=== PATIENT | male | born 1985 | race Caucasian/White ===

== ENCOUNTER 2020-05-21 14:31 | Emergency (ER) | payer OTHER, SELFPAY ==
--- NOTE | ~2020-05-21 | XR_ITS ---
XR shoulder LT min 2V 05/21/2020 15:07 INDICATION: Left shoulder pain after fall from ladder PROCEDURE: 4 views left shoulder COMPARISON: No prior studies for comparison. FINDINGS: Fracture, dislocation or subluxation is not identified. There is anatomic alignment of the left shoulder. The soft tissues appear within normal limits. No foreign bodies are identified. IMPRESSION: 1: NO ACUTE BONE OR JOINT ABNORMALITY IDENTIFIED. Reviewed, dictated and finalized at location A. 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
--- NOTE | ~2020-05-21 | XR_ITS ---
[[id number] ] INDICATION: Left chest pain after fall TECHNIQUE: Frontal projection of the upper left ribs, frontal projection of the lower left ribs, obli que projection of all the left ribs, frontal inspiratory chest x-ray for interpretation. FINDINGS: There are no displaced rib fractures identified. There are no soft tissue abnormality see n. The lungs are clear. There are calcified granulomas in the right upper lobe. IMPRESSION: 1:No displaced rib fractures. Reviewed, dictated and finalized at location A. 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
[2020-05-21 14:37] VITALS: BP 163/90; PULSE 94; RESP 20; TEMP 36.8; O2SAT 100
--- NOTE | 2020-05-21 15:03 | ED.CHESTPAIN ---
HPI - Chest Pain General Chief Complaint: Chest Pain Stated Complaint: fall/rib injury Source: patient Mode of arrival: ambulatory Limitations: no limitations History of Present Illness HPI narrative: Patient is a 34-year-old male who presents complaining of left rib and left shoulder pain. Patient reports being on a ladder last night with the floor wet, patient reports the ladder slid 14 feet down the wall and he fell on top. He denies neck pain or back pain. He denies LOC. He reports pain 10/. He reports fall occurred at approximately 0130. He reports going home and taking Aleve with little relief. Patient is asking for assistance removing shirt for xray. MD complaint: other (Left shoulder pain, left rib pain) Related Data Allergies Allergy/AdvReac Type Severity Reaction Status Date / Time No Known Allergies Allergy Verified 05/21/20 14:41 Review of Systems Review of Systems: Narrative: CONSTITUTIONAL: Denies fever, chills, or sweats. EYES: Denies visual changes, redness, or discharge. ENT: Denies rhinorrhea, congestion, sore throat, or otalgia. CARDIOVASCULAR: Denies chest pain, palpitations, or edema. RESPIRATORY: Denies cough or dyspnea. GASTROINTESTINAL: Denies abdominal pain, nausea, vomiting, or diarrhea. GENITOURINARY: Denies dysuria or hematuria. SKIN: Denies rash or itching. MUSCULOSKELETAL: Reports left shoulder and left rib pain NEUROLOGIC: Denies headache, numbness, dizziness, or weakness. PSYCHIATRIC: Denies anxiety or depression. [facility] Past Medical History Medical History (Updated 05/21/20 @ 15:27 by RONY Ivey) No significant past medical history Surgical History Surgical History No significant past surgical history Family History Family History Other No significant family history Social History Social History (Updated 05/21/20 @ 15:11 by RONY Ivey) Smoking status: Never smoker Alcohol intake: current Alcohol use details: Occasional Substance use: never Occupation/Education: occupation Comments At the time of signature, I have reviewed and agree with nursing past medical, surgical, social, and family history unless otherwise noted. Please see nursing chart for further information. There is no relevant family history pertinent to the presenting complaint. Exam Narrative: Exam Narrative: GENERAL: Guarding left ribs and shoulder, appears in pain. HEAD: Normocephalic, atraumatic. EYES: No redness or drainage. Conjunctiva are normal. ENT: Mucous membranes pink and moist. CHEST: No respiratory distress. Clear to auscultation. HEART: Regular rate and rhythm. MUSCULOSKELETAL: Tenderness with palpation to the left shoulder, decreased active range of motion, no obvious deformity. Tenderness with palpation to left ribs. SKIN: Warm, dry, no rash. NEURO: No focal deficits. Alert and oriented x3. Gait steady. PSYCH: Normal affect. No signs of depression or anxiety. Course Vital Signs Vital signs: Vital Signs Temperature 36.8 C 05/21/20 14:37 Pulse Rate 94 05/21/20 14:37 Respiratory Rate 20 05/21/20 14:37 Blood Pressure 163/90 H 05/21/20 14:37 Pulse Oximetry 100 05/21/20 14:37 Temperature 36.8 C 05/21/20 14:37 Pulse Rate 94 05/21/20 14:37 Respiratory Rate 20 05/21/20 14:37 Blood Pressure 163/90 H 05/21/20 14:37 Pulse Oximetry 100 05/21/20 14:37 Reviewed. Patient has been instructed to follow-up with his PCP regarding his blood pressure. MDM - Chest Pain MDM Narrative Medical decision making narrative: Patient has no fracture or dislocation per x-ray. Discussed with patient most likely musculoskeletal pain. Patient to be treated for pain and given incentive spirometer as he does not want to take deep breaths because of pain. Instructions on incentive spirometry given as well. Patient to follow-up with
== END 2020-05-21 16:10 | disposition home or self-care (01) ==
PROVIDERS: Emergency Provider Nurse Practitioner
DX: R07.81 Pleurodynia (principal); M25.512 Pain in left shoulder; W11.XXXA Fall on and from ladder, initial encounter
CPT/HCPCS: 71101; 73030; 99214; G0463

== ENCOUNTER 2021-07-23 20:31 | Emergency (ER) | payer SELFPAY ==
--- NOTE | ~2021-07-23 | CT_ITS ---
EXAMINATION: CT brain wo con DATE: 07/23/2021 21:08 INDICATION: Headache for one to 2 days. He or centimeters is or pulmonary TECHNIQUE: Computed tomography (CT) of the head was performed without intravenous contrast. The mA wa s adjusted according to patient size. Iterative reconstruction technique was employed. Exam dose: 60 5.33 mGy-cm total exam DLP. COMPARISON: None FINDINGS: No intracranial mass lesion or hemorrhage or cerebrovascular accident. No midline shift or mass effect. Normal ndiaye-white matter differentiation. Normal size of the ventricles. No subdural or epidural hematoma. No fracture or bone destruction of the cranial vault. Included paranasal sinuses and mastoid air cell s are unremarkable. IMPRESSION: No significant abnormality Reviewed, dictated and finalized at Location [facility]. Reviewed, dictated and finalized at location A. IMPRESSION: No significant abnormality
[2021-07-23 20:34] VITALS: BP 155/105; PULSE 83; RESP 18; TEMP 36.3; O2SAT 99
--- NOTE | 2021-07-23 20:49 | ED.GENADULT ---
HPI - General Adult General Chief complaint: Headache Stated complaint: Headache for 36 hours Time Seen by Provider: 07/23/21 20:42 Source: patient, family and RN notes reviewed Mode of arrival: ambulatory Limitations: no limitations History of Present Illness HPI narrative: 35-year-old male presenting to the emergency department for evaluation of right-sided posterior headache. Patient states yesterday he was driving to work and due to the cold air he had a hard cough. Patient states after that cough he had right superior neck/ posterior scalp pain. Patient states he has had a posterior headache in that region since that time. Patient is not taking anything for pain control. Patient denies any associated numbness or weakness. Patient states that the headache has blurred his vision somewhat. Patient states that the pain was worse with movement of his neck. Patient was able to go to work today. 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 Denies any previous neck injury. Patient is not on any blood thinners. Related Data Allergies Allergy/AdvReac Type Severity Reaction Status Date / Time No Known Allergies Allergy Verified 07/23/21 20:51 Review of Systems Review of Systems: CONSTITUTIONAL: Denies fever, chills, or sweats. EYES: Denies visual changes, redness, or discharge. ENT: Denies rhinorrhea, congestion, sore throat, or otalgia. CARDIOVASCULAR: Denies chest pain, palpitations, or edema. RESPIRATORY: Denies cough or dyspnea. GASTROINTESTINAL: Denies abdominal pain, nausea, vomiting, or diarrhea. GENITOURINARY: Denies dysuria or hematuria. SKIN: Denies rash or itching. MUSCULOSKELETAL: some right sided neck pain NEUROLOGIC: Right-sided posterior headache, reports some minor vision changes due to the headache. Denies any associated numbness or weakness or nausea or vomiting PMF Past Medical History Medical History (Updated 07/23/21 @ 21:54 by Norman Hastings MD) No significant past medical history Surgical History Surgical History No significant past surgical history Family History Family History Other No significant family history Social History Social History (Updated 05/21/20 @ 15:11 by Elena Osullivan, [facility]) Smoking status: Never smoker Alcohol intake: current Alcohol use details: Occasional Substance use: never Exam Narrative: APPEARANCE: Well appearing, no pain, no distress, well-nourished. HEAD: normocephalic, atraumatic. EYES: PERRLA/EOMI, conjunctivae clear. NOSE: Normal no drainage EARS:TMS clear with good light reflex. THROAT: Pharynx clear, no exudate. NECK: Supple. No adenopathy, no masses. Some reproducible tenderness to posterior scalp. RESPIRATORY: Airway patent, respirations nonlabored. Clear to auscultation bilaterally, no rales, rhonchi, wheezing. CARDIOVASCULAR: Regular rate and rhythm without murmurs rubs or gallops. ABDOMINAL: Soft, nontender, nondistended, normal bowel sounds MUSCULOSKELETAL: Moves all extremities. Strength/ROM intact, No edema, No calf tenderness. NEURO: Alert. Cranial nerves II through XII intact. Good gait. Good coordination. Normal strength and reflexes. No ataxia, no drift. No numbness or weakness. Normal visual echevarria. SKIN: Warm, dry. Normal Color Course Course Emergency Course: Patient does feel improved with treatment in the restaurant. CT scan was negative for acute intracranial abnormality. Low concern for vascular injury due to the negative imaging, normal neuro exam and tenderness to palpation. Suspect muscular strain due to the sneezing. Patient was provided Toradol and Flexeril in the emergency department after the negative scan. Patient was discharged with Flexeril. Patient was encouraged to have close follow-up with his p
[2021-07-23] MEDS: CYCLOBENZAPRINE HCL 10 MG TABLET PO (21:50)
[2021-07-23] MEDS: SODIUM CHLORIDE 0.9% IV 1,000 ML 999 ML IV CONT (21:51)
[2021-07-23] MEDS: KETOROLAC 15 MG/ML VIAL (*BKC) IV PUSH (21:51)
[2021-07-23 22:48] VITALS: BP 121/85; PULSE 60; RESP 16; O2SAT 99
== END 2021-07-23 22:50 | disposition home or self-care (01) ==
PROVIDERS: Emergency Provider Emergency Medicine
DX: R51.9 Headache, unspecified (principal)
CPT/HCPCS: 70450; 96374; 99284; A9270; J1885; J7030

== ENCOUNTER 2021-09-13 20:37 | Emergency (ER) | payer SELFPAY ==
--- NOTE | ~2021-09-13 | CT_ITS ---
EXAMINATION: CT abdomen pelvis w con DATE: 09/13/2021 22:09 INDICATION: abd pain TECHNIQUE: Computed tomography (CT) of the abdomen and pelvis was performed with 100 mL Omnipaque-300 intravenous contrast. Automated exposure control and iterative reconstruction technique were employe d. The dose-length product was 1328.57 mGy-cm. COMPARISON: None FINDINGS: Lower thorax: Unremarkable Liver: Normal. Biliary/Gallbladder: Gallbladder is normal. No bile duct dilation. Spleen: Normal. Pancreas: No mass or duct dilation. Adrenals:No mass. Kidneys: No mass, stone, or hydronephrosis. GI tract: No small or large bowel dilation. Normal appendix. Mesentery/Peritoneum: No ascites, mass, or free air. Retroperitoneum: No mass.. Pelvis: Pelvic organs are within normal limits. Soft Tissues: Soft tissues and body wall unremarkable. Bones: No acute osseous finding. IMPRESSION: No acute abdominopelvic process. Reviewed, dictated and finalized at location K.
[2021-09-13 20:53] VITALS: BP 165/107; PULSE 78; RESP 18; TEMP 36.8; O2SAT 100
[2021-09-13 21:05] LABS: Basophils Absolute Auto 0.1 K/mm3 (0.0-0.1); Basophils Percent Auto 1.1 % (0.2-1.2); Eosinophils Absolute Auto 0.2 K/mm3 (0-0.3); Eosinophils Percent Auto 2.9 % (0-4.4); Hematocrit 47.1 % (42.0-52.0); Hemoglobin 16.8 g/dL (14.0-18.0); Immature Granulocyte Absolute 0.04 K/mm3 (0.00-0.031); Immature Granulocyte Percent A 0.5 % (0-0.5); Lymphocytes Absolute Auto 2.24 K/mm3 (0.9-3.2); Lymphocytes Percent Auto 28.5 % (18.3-44.2); Mean Corpuscular HGB Conc 35.7 g/dl (32-36); Mean Corpuscular Hemoglobin 33.6 pg (26-34); Mean Corpuscular Volume 94.2 fl (80-100); Mean Platelet Volume 9.7 fl (7.4-10.4); Monocytes Absolute Auto 0.8 K/mm3 (0.1-0.6); Monocytes Percent Auto 9.7 % (2.6-8.5); Neutrophils Absolute Auto 4.5 K/mm3 (1.3-6.7); Neutrophils Percent Auto 57.3 % (45.5-73.1); Platelet Count Result 163 k/mm3 (150-375); White Blood Count 7.9 K/mm3 (4.5-10.0)
[2021-09-13 21:14] LABS: Alanine Aminotransferase 371 U/L (6-50); Albumin Level 4.9 g/dL (3.5-5.1); Alkaline Phosphatase 76 U/L (38-126); Anion Gap 6 mmol/L (8-16); Aspartate Amino Transferase 222 U/L (17-59); Bilirubin,Total 0.5 mg/dL (0.2-1.3); Blood Urea Nitrogen 14 mg/dL (9-20); Calcium 9.2 mg/dL (8.4-10.2); Carbon Dioxide 26 mmol/L (22-30); Chloride 104 mmol/L (98-107); Estimated CRCL calculation 144 ml/min; Estimated Glomerular Filt Rate > 60; Glucose 89 mg/dL (65-110); Potassium 4.2 mmol/L (3.4-5.0); Sodium 136 mmol/L (137-145)
[2021-09-13 21:16] LABS: Prothrombin Time 12.8 Seconds (11.1-14.7)
[2021-09-13 21:18] LABS: Partial Thromboplastin Time 28.7 SECONDS (22.3-36.8)
--- NOTE | 2021-09-13 21:41 | PC.NURSE ---
[facility] ERP DR PRETTY TO ENTER UA ORDER.
--- NOTE | 2021-09-13 21:44 | ED.GIBLEED ---
HPI - GI Bleed General Chief complaint: GI Bleed Stated complaint: black stools 2 days Time Seen by Provider: 09/13/21 21:30 Source: RN notes reviewed History of Present Illness HPI Narrative: Patient presents emergency room from home for abdominal pain and black stools. Patient states symptoms began 2 days ago states he began to have pain in his bilateral lower abdomen as well as 2 episodes of black stool 2 days ago and 1 episode yesterday he states that his stool was loose in nature he denies any fevers or chills chest pain shortness of breath vomiting. He states he has been feeling more tired over the past several days. Patient states he does drink approximately 6-7 beers 3-4 times a week Related Data Allergies Allergy/AdvReac Type Severity Reaction Status Date / Time No Known Allergies Allergy Verified 09/13/21 20:57 Review of Systems Review of Systems: Gen.: Denies fevers or chills ENT: Denies congestion Respiratory: Denies shortness of breath or cough CV: Denies chest pain or palpitations GI: HPI denies burning, urgency, frequency or hematuria Musculoskeletal: Denies back pain or muscle pain Neuro: Denies numbness, tingling, weakness or focal weakness Skin: Denies rash Except as documented, all other systems reviewed and negative [facility] Past Medical History Medical History No significant past medical history Surgical History Surgical History No significant past surgical history Family History Family History Other No significant family history Social History Social History Smoking status: Never smoker Alcohol intake: current Alcohol use details: Occasional Substance use: never Exam Narrative: APPEARANCE: No acute distress, nontoxic, resting in bed HEENT: Normocephalic, atraumatic, OMM RESPIRATORY: No respiratory distress, clear to auscultation bilaterally with no rhonchi wheezing or rales CARDIOVASCULAR: RRR s murmur ABDOMINAL: Soft nondistended tender palpation left lower quadrant right lower quadrant no tenderness right upper quadrant left upper quadrant no rebound or guarding Rectal: No hemorrhoids or fissures small amount of dark brown stool in rectal vault that is Hemoccult negative MUSCULOSKELETAl: Moves all extremities. No clubbing, cyanosis or edema. NEURO: Awake and alert. Following commands, speech normal, no focal deficits SKIN:: Warm, dry. Normal Color PSYCHIATRIC: Normal affect/mood Course Course Emergency Course: Discussed with patient results of workup and diagnosis. Discussed need for follow-up with primary care, proper use of medication, and reasons to return to the emergency department. Patient understands and agrees to current treatment plan Vital Signs Vital signs: Vital Signs Temperature 98.3 F 09/13/21 20:53 Pulse Rate 78 09/13/21 20:53 Respiratory Rate 18 09/13/21 20:53 Blood Pressure 165/107 H 09/13/21 20:53 Pulse Oximetry 100 09/13/21 20:53 Temperature 98.3 F 09/13/21 20:53 Pulse Rate 65 09/13/21 21:56 Respiratory Rate 18 09/13/21 20:53 Blood Pressure 155/95 H 09/13/21 21:56 Pulse Oximetry 100 09/13/21 20:53 MDM - GI Bleed MDM Narrative Medical decision making narrative: Patient's abdomen is soft without significant pain or signs of surgical abdomen on serial exams. Lab and x-ray evaluations are reviewed and patient is felt to be a reasonable candidate for outpatient management. Patient was instructed as to limitations of x-ray and laboratory evaluation and encouraged to return to ED or primary physician for repeat exam in 12 hours if continued or worsening pain. A rectal exam was performed in the ER with heme-negative stool hemoglobin is stable in ED and CT scan shows no acute signs of infection no acut
[2021-09-13 21:53] VITALS: BP 143/93; PULSE 56
[2021-09-13 21:54] VITALS: BP 138/105; PULSE 68
--- NOTE | 2021-09-13 21:54 | PC.NURSE ---
called lab and spoke to Yazmin to add on a lipase at 2155.
[2021-09-13 21:56] VITALS: BP 155/95; PULSE 65
[2021-09-13 22:06] LABS: Lipase 94 U/L (23-300)
[2021-09-13] MEDS: SODIUM CHLORIDE 0.9% IV 1,000 ML 999 ML IV CONT (22:08)
[2021-09-13 22:12] LABS: Appearance Urine Clear (Clear); Bilirubin Urine Negative (Negative); Blood Urine Negative (Negative); Color Urine Yellow (Yellow); Glucose Urine UA Negative (Negative); Ketones Urine Negative (Negative); Leukocyte Esterase Ur Negative LEU/UL (Negative); Nitrate Urine Negative (Negative); Protein Urine Negative (Negative); Specific Grav Ur >= 1.030 (1.001-1.035); pH Urine 6.5 (5.0-9.0)
[2021-09-13 22:17] LABS: Add Urine Microscopic? YES; Mucus Urine Rare /lpf; RBC Urine 0-2 /hpf (0-2); Squamous Epithelial Cell Urine Rare /hpf (Few); WBC Urine 0-3 /hpf
[2021-09-13 22:47] VITALS: BP 161/98; PULSE 73; RESP 18; O2SAT 99
== END 2021-09-13 22:48 | disposition home or self-care (01) ==
PROVIDERS: Emergency Provider Emergency Medicine
DX: R10.32 Left lower quadrant pain (principal); R10.31 Right lower quadrant pain; R74.01 Elevation of levels of liver transaminase levels
CPT/HCPCS: 36415; 74177; 80053; 81001; 83690; 85025; 85610; 85730; 86850; 86880; 86900; 86901; 86902; 96360; 99284; J7030; Q9967

== ENCOUNTER 2022-01-10 18:29 | Emergency (ER) | payer BC, SELFPAY ==
--- NOTE | ~2022-01-10 | XR_ITS ---
XR chest 2V DATE: 01/10/2022 20:18 INDICATION: Weakness since bit by an insect 2 days ago TECHNIQUE: PA and lateral views COMPARISON: None FINDINGS: Normal heart size. No hilar or mediastinal enlargement. No pulmonary infiltrate or consolid ation, pleural effusion or pulmonary vascular congestion or pneumothorax. Right upper lobe calcified pulmonary granuloma. IMPRESSION: No active cardiopulmonary disease Reviewed, dictated and finalized at location A.
[2022-01-10 18:33] VITALS: BP 165/93; PULSE 83; RESP 16; TEMP 36.3; O2SAT 100
--- NOTE | 2022-01-10 18:40 | ECG_ITS ---
Measurements Intervals [place] Rate: 55 P: 51 WI: 156 QRS: 0 QRSD: 97 T: -6 QT: 416 QTc: 401 Interpretive Statements SINUS BRADYCARDIA DELAYED PRECORDIAL R/S TRANSITION BORDERLINE T WAVE ABNORMALITY- INFERIOR LEADS BORDERLINE ECG NO PREVIOUS ECG AVAILABLE FOR COMPARISON Electronically Signed On 01-11-2022 8:07:09 CDT by Steven Hall D.O.
[2022-01-10 19:28] LABS: Basophils Absolute Auto 0.1 K/mm3 (0.0-0.1); Basophils Percent Auto 0.8 % (0.2-1.2); Eosinophils Absolute Auto 0.2 K/mm3 (0-0.3); Hematocrit 46.1 % (42.0-52.0); Immature Granulocyte Absolute 0.04 K/mm3 (0.00-0.031); Immature Granulocyte Percent A 0.5 % (0-0.5); Lymphocytes Percent Auto 24.5 % (18.3-44.2); Mean Corpuscular HGB Conc 34.7 g/dl (32-36); Mean Corpuscular Hemoglobin 32.8 pg (26-34); Mean Corpuscular Volume 94.5 fl (80-100); Mean Platelet Volume 9.6 fl (7.4-10.4); Monocytes Absolute Auto 0.7 K/mm3 (0.1-0.6); Monocytes Percent Auto 8.3 % (2.6-8.5); Neutrophils Absolute Auto 5.5 K/mm3 (1.3-6.7); Neutrophils Percent Auto 63.9 % (45.5-73.1); Platelet Count Result 194 k/mm3 (150-375); Red Blood Count 4.88 M/mm3 (4.6-6.20); Red Cell Distribution Width 12.4 % (11.5-14.5); White Blood Count 8.6 K/mm3 (4.5-10.0)
[2022-01-10 19:52] LABS: Alanine Aminotransferase 469 U/L (6-50); Albumin Level 4.8 g/dL (3.5-5.1); Alkaline Phosphatase 83 U/L (38-126); Anion Gap 16 mmol/L (8-16); Aspartate Amino Transferase 286 U/L (17-59); Bilirubin,Total 0.9 mg/dL (0.2-1.3); Blood Urea Nitrogen 14 mg/dL (9-20); Calcium 9.1 mg/dL (8.4-10.2); Carbon Dioxide 21 mmol/L (22-30); Chloride 102 mmol/L (98-107); Estimated Glomerular Filt Rate > 60; Glucose 104 mg/dL (65-110); Potassium 3.8 mmol/L (3.4-5.0); Sodium 139 mmol/L (137-145)
[2022-01-10] MEDS: CEPHALEXIN 500 MG CAPSULE PO (22:54)
[2022-01-10] MEDS: ONDANSETRON HCL ODT 4 MG TABLET PO (22:54)
[2022-01-10] MEDS: MECLIZINE HCL 25 MG TABLET PO (22:54)
[2022-01-10 23:01] LABS: Appearance Urine Clear (Clear); Bilirubin Urine 1+ (Negative); Blood Urine Negative (Negative); Color Urine Yellow (Yellow); Glucose Urine UA Negative (Negative); Ketones Urine 1+ mg/dL (Negative); Leukocyte Esterase Ur Negative LEU/UL (Negative); Nitrate Urine Negative (Negative); Protein Urine Negative (Negative); Specific Grav Ur >= 1.030 (1.001-1.035); Urobilinogen Urine 0.2 mg/dL (<2.0); pH Urine 5.5 (5.0-9.0)
[2022-01-10 23:04] LABS: Bacteria Urine Trace /hpf; Mucus Urine Rare /lpf; RBC Urine 0-2 /hpf (0-2); WBC Urine 0-3 /hpf
[2022-01-10 23:10] LABS: Add Urine Microscopic? YES
--- NOTE | 2022-01-10 23:23 | ED.WOUNDLAC ---
HPI - Wound/Laceration General Chief Complaint: Wound/Laceration Stated Complaint: bite by something Time Seen by Provider: 01/10/22 22:34 History of Present Illness HPI narrative: This is a 36-year-old male with no significant past medical history, who presents to the emergency department complaining of vertigo and left finger paresthesias. He states earlier today, he and his changed sheets in the bed, when he slept he felt 3 bites to the left arm, that has since developed mild swelling associated with vertigo. Patient states he has not eaten any thing today but denies vomiting, shortness of breath, chest pain, weakness or numbness. Related Data Allergies Allergy/AdvReac Type Severity Reaction Status Date / Time No Known Allergies Allergy Verified 01/10/22 22:34 Review of Systems Review of Systems: CONSTITUTIONAL: Denies fever, chills, or sweats. EYES: Denies visual changes, redness, or discharge. ENT: Denies rhinorrhea, congestion, sore throat, or otalgia. CARDIOVASCULAR: Lightheadedness denies chest pain, palpitations, or edema. RESPIRATORY: Denies cough or dyspnea. GASTROINTESTINAL: Denies abdominal pain, nausea, vomiting, or diarrhea. GENITOURINARY: Denies dysuria or hematuria. SKIN: Denies rash or itching. MUSCULOSKELETAL: Denies back pain, joint pain, or myalgia. NEUROLOGIC: Vertigo denies headache, numbness, or weakness. PSYCHIATRIC: Denies anxiety or depression. PMFSH Past Medical History Medical History (Updated 01/10/22 @ 23:27 by Landon Coughlin MD) Bloating Elevated liver function tests Hx of intravenous drug use in remission No significant past medical history Surgical History Surgical History No significant past surgical history Family History Family History (Updated 10/25/21 @ 13:05 by Lisbet Dyer MA) Father Cancer Mother Cancer Other No significant family history Social History Social History Smoking status: Never smoker Alcohol intake: current Alcohol use details: Occasional Substance use: never Exam Narrative: GENERAL: Well-appearing, well-nourished, and in no acute distress. HEAD: Normocephalic, atraumatic. EYES: PERRLA and EOMI. ENT: Nares clear, no rhinorrhea or epistaxis. Mucous membranes moist. Oropharynx without tonsillar hypertrophy exudate or other lesions. NECK: Supple. No adenopathy or masses. No carotid bruits or JVD CHEST: Clear to auscultation. No respiratory distress. No wheezes rales or rhonchi HEART: Regular rate and rhythm. No murmur heard. Normal peripheral pulses. ABDOMEN: Soft, nontender, nondistended, normal active bowel sounds. EXTREMITIES: Normal range of motion. No edema. SKIN: Warm, dry; 3 mildly tender, approximately 0.5 to 1 cm areas of induration with erythema noted over the posterior lateral aspect of the left arm. There is no noted fluctuant mass NEURO: No focal deficits. Alert and oriented x3. Strength 5 5 in all extremities, sensation intact, no noted truncal ataxia or limb ataxia, no nystagmus PSYCH: Normal mood and affect. Course Course Emergency Course: 00:26 - Patient states he feels improved after meclizine, Zofran and tolerating p.o. Chemistries demonstrate ALT AST elevation but otherwise unremarkable. CBC unremarkable. UA unremarkable. Chest x-ray unremarkable. Discussed findings and recommendations with the patient as well is return emergent precautions including signs/symptoms of sepsis and intractable vomiting. The patient voiced understanding and is comfortable with the plan. All questions answered to his satisfaction. Vital Signs Vital signs: Vital Signs Temperature 97.3 F L 01/10/22 18:33 Pulse Rate 83 01/10/22 18:33 Respiratory Rate 16 01/10/22 18:33 Blood Pressure 165/93 H 01/10/22 18:33 Pulse Oximetry 100 01/10/22 18:33 Temperature 97.3 F L 01/10/22 18:33 Pulse
[2022-01-11 00:39] VITALS: BP 139/84; PULSE 60; RESP 16; O2SAT 99
== END 2022-01-11 00:38 | disposition home or self-care (01) ==
PROVIDERS: Emergency Medicine; Emergency Provider Preventive Medicine Aerospace Medicine
DX: R42 Dizziness and giddiness (principal); L03.114 Cellulitis of left upper limb; R11.0 Nausea; R00.1 Bradycardia, unspecified; R94.31 Abnormal electrocardiogram [ECG] [EKG]
CPT/HCPCS: 36415; 71046; 80053; 81001; 85025; 93005; 99283; A9270

== ENCOUNTER 2022-05-17 14:56 | Outpatient (CLI) | payer BC, SELFPAY ==
[2022-05-17 15:27] LABS: Hematocrit 44.8 % (42.0-52.0); Hemoglobin 15.9 g/dL (14.0-18.0); Mean Corpuscular HGB Conc 35.5 g/dl (32-36); Mean Corpuscular Hemoglobin 33.7 pg (26-34); Mean Corpuscular Volume 94.9 fl (80-100); Mean Platelet Volume 9.8 fl (7.4-10.4); Platelet Count Result 159 k/mm3 (150-375); Red Blood Count 4.72 M/mm3 (4.6-6.20); White Blood Count 7.6 K/mm3 (4.5-10.0)
[2022-05-17 15:37] LABS: Alanine Aminotransferase 279 U/L (6-50); Albumin Level 4.8 g/dL (3.5-5.1); Alkaline Phosphatase 87 U/L (38-126); Aspartate Amino Transferase 187 U/L (17-59); Bilirubin,Total 0.9 mg/dL (0.2-1.3)
[2022-05-17 15:44] LABS: INR 1.1; Prothrombin Time 13.6 Seconds (11.1-14.7)
[2022-05-17 18:10] LABS: Hepatitis B Surface Anti Res Negative
[2022-05-19 20:02] LABS: Hepatitis C Viral RNA PCR 394000 IU/mL
[2022-05-20 19:32] LABS: Hepatitis A Antibody Total Nonreactive (Nonreactive)
[2022-05-20 21:30] LABS: Actin Antibody (IgG) <20 U (<20)
[2022-05-21 20:36] LABS: LKM 1 Antibody <=20.0 U (<=20.0)
[2022-05-22 06:52] LABS: HCV Genotype, LiPA 3
[2022-05-22 13:38] LABS: Alpha-1-Antitrypsin, QN 161 mg/dL (83-199)
[2022-05-22 20:57] LABS: Mitochondrial (M2) Ab (IgG) <=20.0 U (<=20.0)
[2022-05-23 15:42] LABS: ALT 229 U/L (9-46); Alpha-2-Macroglobulin 187 mg/dL (106-279); Apolipoprotein A1 173 mg/dL (94-176); Fibrosis Score 0.29; Fibrosis Stage F1; GGT 463 U/L (3-90); Haptoglobin 127 mg/dL (43-212); Necroinflammat Act Grade A3; Total Bilirubin 0.5 mg/dL (0.2-1.2)
[2022-05-23 16:36] LABS: Alpha Fetoprotein Tumor Marker 8.6 ng/mL (<6.1)
== END 2022-05-17 14:57 | disposition home or self-care (01) ==
LOC: ANHLAB 14:57
PROVIDERS: PCP Family Medicine; Visit Provider Nurse Practitioner
DX: K74.60 Unspecified cirrhosis of liver (principal); R76.8 Other specified abnormal immunological findings in serum; R79.89 Other specified abnormal findings of blood chemistry
CPT/HCPCS: 36415; 80076; 81596; 82103; 82105; 83516; 83520; 85027; 85610; 86038; 86376; 86706; 86708; 87522

== ENCOUNTER 2022-05-28 08:41 | Outpatient (CLI) | payer BC, SELFPAY ==
--- NOTE | ~2022-05-28 | US_ITS ---
EXAMINATION: US abdomen complete DATE: 05/28/2022 09:25 INDICATION: Other specified abnormal immunologic findings. TECHNIQUE: Multiple grayscale and Doppler ultrasound images of the abdomen were obtained. COMPARISON: CT abdomen and pelvis dated 09/13/2021 FINDINGS: The pancreatic head and body are normal in appearance. The pancreatic tail is not visualized. Abdomi nal aorta measures 2.4 cm in diameter proximally, 2.6 cm in the mid aorta and 1.7 cm in the distal ao rta with normal triphasic arterial waveforms on color Doppler. Visualized proximal inferior vena cava is normal. Liver has normal contour, with a smooth surface. There is increased parenchymal echogenic ity and coarsened echotexture consistent with diffuse hepatic steatosis. No liver lesion identified. No intrahepatic biliary duct dilation suspected. Portal venous flow was seen in the hepatopetal, nor mal direction and has normal Doppler waveform. The gallbladder is normal in appearance. There is no cholelithiasis. Sonographic Isaacs sign was reported as negative by the medical practitioners. The common bile duct measures 3 mm, which is normal. There is normal renal contour and echogenicity bilaterally. The right kidney measures 12.6 x 5.0 x 4.3 cm and the left 12.2 x 5.8 x 4.0 cm. There are no focal renal lesions identified. There is no hydronephrosis. Normal spleen measuring 12.1 x 12.3 x 3.4 cm . IMPRESSION: 1. Diffuse hepatic steatosis. Otherwise normal abdominal ultrasound. Reviewed, dictated and finalized at location B. [employer]
== END 2022-05-28 08:42 | disposition home or self-care (01) ==
LOC: ANHIMG 08:42
PROVIDERS: PCP Family Medicine; Visit Provider Nurse Practitioner
DX: K76.0 Fatty (change of) liver, not elsewhere classified (principal); R10.13 Epigastric pain; R76.8 Other specified abnormal immunological findings in serum; R79.89 Other specified abnormal findings of blood chemistry
CPT/HCPCS: 76700

== ENCOUNTER 2022-06-22 00:30 | Day surgery (SDC) | payer BC, SELFPAY ==
[2022-06-06 14:20] VITALS: BMI 36.8
[2022-06-22 06:24] VITALS: BP 159/102; PULSE 68; RESP 18; TEMP 36.2; O2SAT 100
[2022-06-22] MEDS: LACTATED RINGERS 1,000 ML 150 ML IV CONT (06:36)
--- NOTE | 2022-06-22 06:40 | WPDANESEPPF ---
Anes - Initial Pre Proc Eval Procedure: Operation Date: 06/22/22 07:30 Proposed Procedures p Esophagogastroduodenoscopy & Colonoscopy - Jan Godinez MD Date/Time: 06/22/22 06:40 Surgeon: Jan Godinez MD Pre Op Diagnosis: GERD, hematochezia Patient Data Age: 36 Gender: M Height: 1.8 m Weight: 119.4 kg Last Vital Signs Temp 36.2 C L 06/22/22 06:24 Pulse 68 06/22/22 06:24 Resp 18 06/22/22 06:24 BP 159/102 H 06/22/22 06:24 Pulse Ox 100 06/22/22 06:24 O2 Del Method Room Air 06/22/22 06:24 Allergies Allergy/AdvReac Type Severity Reaction Status Date / Time gabapentin Allergy Intermediate Muscle Verified 06/22/22 06:23 Spasms Home Medications Medication Instructions Recorded Confirmed Type multivitamin 1 tablet PO DAILY 05/03/22 06/06/22 History escitalopram oxalate 5 mg tablet 5 mg PO DAILY #30 tabs 05/17/22 06/06/22 Rx (Lexapro) omeprazole 40 mg capsule,delayed 40 mg PO DAILY 1 month #30 caps 05/21/22 06/06/22 Rx release cetirizine 10 mg tablet (Zyrtec) 10 mg PO DAILY 06/06/22 06/06/22 History lorazepam 0.5 mg tablet (Ativan) 0.5 mg PO BID PRN anxiety #30 tabs 06/12/22 06/22/22 Rx Patient hx anesthesia problems: none Family hx anesthesia problems: none Results Review: All pre-operative results and documents have been reviewed as part of the pre-operative evaluation. [facility] Past Medical History Medical History Alcohol abuse Bloating Elevated liver function tests Epigastric pain Hematochezia Hepatitis C antibody positive in blood Hx of intravenous drug use in remission Nausea No significant past medical history Surgical History Surgical History No significant past surgical history Family History Family History Father Cancer Skin cancer Anxiety Mother Cancer Cancer of kidney Depression Anxiety Other No significant family history Social History Social History Smoking packs per day: 0.5 Smoking cigarettes per day: 10.0 Years smoked: 7 Smoking pack-years: 3.50 Smoking status: Former smoker Tobacco type: cigarettes Smoking end date: 05/06/14 Alcohol intake: current Alcohol use details: a few beers a week - formerly was drinking heavily Substance use: never Substance use type: does not use Last use: 2012 Lack of Transportation: No Lack of Food: Never True Current Housing: I Have Housing Concerned About Future Housing: No Difficulty Paying Gas/Electric Bills: No Difficulty Paying for Meds: No Currently Unemployed: No Education: Associate Degree Difficulty w/ Childcare or Family Care: No Living arrangements: with family Occupation/Education: occupation Spiritual care concerns: No Anes - Eval Final PreProcedure Day of Procedure 06/22/22 06:40 Patient weight: obese Heart: regular rate and rhythm Lungs: clear to auscultation Airway: Mallampati scale class II Neurological: alert and oriented Last oral intake: >/= 8 hours ASA classification: III Emergent: no Anesthetic plan: proceed Anesthesia type and monitoring: general GIVS and standard monitoring Results Review: All pre-operative results and documents have been reviewed as part of the pre-operative evaluation. Informed Consent: The patient's anesthetic plan and its attendant risks and benefits were discussed with the patient/family/POA. Questions were solicited and answers provided to the satisfaction of the patient/family/POA.
--- NOTE | 2022-06-22 07:35 | PM.HPGS ---
History of Present Illness History of Present Illness Consent: Risks, benefits, and alternatives have been discussed and questions answered. Patient agrees to proceed with procedure. Chief complaint: GERD, hematochezia Narrative: Kyle Santiago is a 36 year old male with hcv treatment naive, he has abdominal pain, loose stools and few occasions noted blood in stools. Review of Systems Constitutional: Constitutional: Denies headache(s) and Denies weakness Eyes: Eyes: Denies blurry vision ENT: Reports Normal hearing present, Denies headache(s) and Denies neck pain Cardiovascular: Cardiovascular: Denies chest pain and Denies dyspnea Respiratory: Respiratory: Denies dyspnea Gastrointestinal: Gastrointestinal: Reports no additional gastrointestinal complaints Genitourinary: Genitourinary: Denies dysuria Musculoskeletal: Musculoskeletal: Denies neck pain Integumentary/Breasts: Skin/Breast: Denies dry skin Neurologic: Reports Normal hearing present, Denies headache(s) and Denies weakness Psychiatric: Psychiatric: Denies anxiety Endocrine: Endocrine: Denies change in body appearance Hematologic/Lymphatic: Hematologic/Lymphatic: Denies easy bleeding Allergic/Immunologic: Allergic/Immunologic: Denies urticaria PMFSH Past Medical History Medical History Alcohol abuse Bloating Elevated liver function tests Epigastric pain Hematochezia Hepatitis C antibody positive in blood Hx of intravenous drug use in remission Nausea No significant past medical history Surgical History Surgical History No significant past surgical history Family History Family History Father Cancer Skin cancer Anxiety Mother Cancer Cancer of kidney Depression Anxiety Other No significant family history Social History Social History Smoking packs per day: 0.5 Smoking cigarettes per day: 10.0 Years smoked: 7 Smoking pack-years: 3.50 Smoking status: Former smoker Tobacco type: cigarettes Smoking end date: 05/06/14 Alcohol intake: current Alcohol use details: a few beers a week - formerly was drinking heavily Substance use: never Substance use type: does not use Last use: 2012 Lack of Transportation: No Lack of Food: Never True Current Housing: I Have Housing Concerned About Future Housing: No Difficulty Paying Gas/Electric Bills: No Difficulty Paying for Meds: No Currently Unemployed: No Education: Associate Degree Difficulty w/ Childcare or Family Care: No Living arrangements: with family Occupation/Education: occupation Spiritual care concerns: No Meds Home Medications and Allergies Home Medications Medication Instructions Recorded Confirmed Type multivitamin 1 tablet PO DAILY 05/03/22 06/06/22 History escitalopram oxalate 5 mg tablet 5 mg PO DAILY #30 tabs 05/17/22 06/06/22 Rx (Lexapro) omeprazole 40 mg capsule,delayed 40 mg PO DAILY 1 month #30 caps 05/21/22 06/06/22 Rx release cetirizine 10 mg tablet (Zyrtec) 10 mg PO DAILY 06/06/22 06/06/22 History lorazepam 0.5 mg tablet (Ativan) 0.5 mg PO BID PRN anxiety #30 tabs 06/12/22 06/22/22 Rx Allergies Allergy/AdvReac Type Severity Reaction Status Date / Time gabapentin Allergy Intermediate Muscle Verified 06/22/22 06:23 Spasms Vital Signs Vital Signs - 24 hr 06/22/22 06:24 Temperature 97.1 F L Pulse Rate 68 Respiratory Rate 18 Blood Pressure 159/102 H Pulse Oximetry 100 Oxygen Delivery Room Air Exam Const: General: comfortable and no acute distress HENMT: Face/Nose/Sinus: Normal nares present Eyes: General: appearance normal, both eyes and all related structures Neck: Neck: no JVD Resp: Auscultation: clear to auscultation bilaterally Cardio: Rate: r
--- NOTE | 2022-06-22 07:51 | SUR.OPER ---
egd ended at 0751 and colonoscopy started at 0745
[2022-06-22 08:02] VITALS: BP 104/60; PULSE 68; RESP 17; O2SAT 99
[2022-06-22 08:12] VITALS: BP 127/80; PULSE 65; RESP 24; O2SAT 98
[2022-06-22 08:22] VITALS: BP 123/87; PULSE 59; RESP 18; O2SAT 97
== END 2022-06-22 08:40 | disposition home or self-care (01) ==
PROVIDERS: PCP Family Medicine; Visit Provider Internal Medicine Gastroenterology
PROC: 0DJ08ZZ Inspection of Upper Intestinal Tract, Via Natural or Artificial Opening Endoscopic (ICD-10-PCS; CPT 43235; principal; 2022-06-22 07:30)
DX: R11.0 Nausea (principal); R10.13 Epigastric pain; D12.4 Benign neoplasm of descending colon; K64.8 Other hemorrhoids; K92.1 Melena; R19.7 Diarrhea, unspecified; R76.8 Other specified abnormal immunological findings in serum; Z87.891 Personal history of nicotine dependence; E66.9 Obesity, unspecified; Z68.36 Body mass index [BMI] 36.0-36.9, adult
CPT/HCPCS: 43239; 45385; 45380; 88305; J2704; J7120

== ENCOUNTER 2023-02-07 05:23 | Emergency (ER) | payer OTHER, SELFPAY ==
[2023-02-07] VITALS (17 sets, daily range): BP systolic 111–153; BP diastolic 71–91; PULSE 59–71; RESP 14–19; TEMP 36.6–36.8; O2SAT 96–100
--- NOTE | ~2023-02-07 | CT_ITS ---
CT of the Abdomen and Pelvis: Indication: Abdominal pain Technique: 2.5 mm axial scans were obtained through the abdomen and pelvis following intravenous adm inistration of 100 cc of Omnipaque 350. Dose reduction technique was used on this scan by utilizing a utomated exposure control and iterative reconstruction technique. The dose-length product (DLP) was 1 101.86 mGy-cm. COMPARISON: 09/13/2021 Findings: Scans through the lung bases are unremarkable. The liver, spleen, pancreas, gallbladder, adrenals and kidneys are within normal limits. No evidence of aortic aneurysm. No lymphadenopathy. No bowel obstruction or bowel wall thickening. There is no evidence to suggest acute appendicitis. Images through the pelvis were performed. Urinary bladder unremarkable. Prostate gland and seminal ve sicles are unremarkable. No ascites. Impression: No significant abnormalities seen. Reviewed, dictated and finalized at [facility]. Impression: No significant abnormalities seen.
[2023-02-07 06:33] LABS: Basophils Absolute Auto 0.1 K/mm3 (0.0-0.1); Basophils Percent Auto 1.8 % (0.2-1.2); Eosinophils Percent Auto 17.4 % (0-4.4); Hematocrit 41.7 % (42.0-52.0); Hemoglobin 13.8 g/dL (14.0-18.0); Immature Granulocyte Absolute 0.01 K/mm3 (0.00-0.031); Immature Granulocyte Percent A 0.2 % (0-0.5); Lymphocytes Absolute Auto 1.69 K/mm3 (0.9-3.2); Mean Corpuscular HGB Conc 33.1 g/dl (32-36); Mean Corpuscular Hemoglobin 33.3 pg (26-34); Mean Corpuscular Volume 100.7 fl (80-100); Mean Platelet Volume 10.3 fl (7.4-10.4); Monocytes Absolute Auto 0.5 K/mm3 (0.1-0.6); Monocytes Percent Auto 9.1 % (2.6-8.5); Neutrophils Absolute Auto 2.3 K/mm3 (1.3-6.7); Neutrophils Percent Auto 41.5 % (45.5-73.1); Platelet Count Result 100 k/mm3 (150-375); Red Blood Count 4.14 M/mm3 (4.6-6.20); Red Cell Distribution Width 13.1 % (11.5-14.5); White Blood Count 5.6 K/mm3 (4.5-10.0)
[2023-02-07 06:44] LABS: Alanine Aminotransferase 261 U/L (6-50); Albumin Level 4.1 g/dL (3.5-5.1); Alkaline Phosphatase 132 U/L (38-126); Anion Gap 9 mmol/L (8-16); Aspartate Amino Transferase 459 U/L (17-59); Bilirubin,Total 1.2 mg/dL (0.2-1.3); Blood Urea Nitrogen 13 mg/dL (9-20); Calcium 8.8 mg/dL (8.4-10.2); Carbon Dioxide 24 mmol/L (22-30); Chloride 104 mmol/L (98-107); Estimated CRCL calculation 163 ml/min; Estimated Glomerular Filt Rate > 60; Glucose 115 mg/dL (65-110); Potassium 3.9 mmol/L (3.4-5.0); Sodium 137 mmol/L (137-145)
[2023-02-07 06:50] LABS: INR 1.1; Prothrombin Time 14.4 Seconds (11.1-14.7)
[2023-02-07 06:51] LABS: Partial Thromboplastin Time 30.7 SECONDS (22.3-36.8)
[2023-02-07] MEDS: PANTOPRAZOLE SODIUM IV 40 MG VIAL 80 MG IV PUSH (08:18)
[2023-02-07] MEDS: ONDANSETRON INJ 4 MG/2 ML VIAL IV PUSH (08:18)
[2023-02-07] MEDS: SODIUM CHLORIDE 0.9% IV 1,000 ML 999 ML IV CONT (08:18)
[2023-02-07] MEDS: MORPHINE SULFATE (*CRX) 4 MG/ML INJ IV PUSH (08:19)
[2023-02-07 09:11] LABS: Hematocrit 39.2 % (42.0-52.0); Hemoglobin 13.2 g/dL (14.0-18.0)
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
== END 2023-02-07 12:25 | disposition home or self-care (01) ==
PROVIDERS: Emergency Medicine; Emergency Provider Preventive Medicine Aerospace Medicine; PCP Family Medicine
DX: K92.0 Hematemesis (principal); B19.20 Unspecified viral hepatitis C without hepatic coma; Z86.010 Personal history of colon polyps; Z87.891 Personal history of nicotine dependence
CPT/HCPCS: 36415; 74177; 80053; 85014; 85018; 85025; 85610; 85730; 86850; 86880; 86900; 86901; 86902; 96361; 96374; 96375; 99284; C9113; J2270; J2405; J7030; Q9967

== ENCOUNTER 2023-04-18 19:49 | Observation (INO) | payer OTHER, SELFPAY ==
--- NOTE | ~2023-04-18 | XR_ITS ---
Portable chest x-ray Comparison: 01/10/2022 Clinical History: Shortness of breath Findings: Stable calcified right upper lobe granuloma. Lungs are otherwise clear, without focal conso lidation or pleural effusion. Cardiomediastinal silhouette is stable. Bones and soft tissues are unr emarkable. Impression: No significant abnormality. Reviewed, dictated and finalized at [facility]. E DOG TRAINER Impression: No significant abnormality.
--- NOTE | ~2023-04-18 | CT_ITS ---
CT scan of the Neck Technique: 2.5 mm axial scans were obtained through the neck after intravenous administration of 75 c c Omnipaque 350. Coronal and sagittal reconstructions of the neck were obtained. Dose reduction techn ique was used on this scan by utilizing automated exposure control and iterative reconstruction techn ique. The dose-length product (DLP) was 643.34 mGy-cm. Clinical History: Inhalational injury Findings: There is no evidence of any significant cervical lymphadenopathy. Several small, nonenlarged jugulo- digastric and posterior cervical lymph nodes are noted bilaterally. Parapharyngeal spaces appear norm al bilaterally. The parotid and submandibular glands appear normal. The pharyngeal mucosal spaces appear normal. No soft tissue masses are seen in the neck. The thyroid gland appears normal. Images of the lung apices reveal calcified right upper lobe granulo ma. Impression: No significant abnormalities noted. Reviewed, dictated and finalized at [facility]. ERPRESS SETTER Impression: No significant abnormalities noted.
[2023-04-18 19:50] VITALS: BP 155/103; PULSE 71; RESP 20; TEMP 36.3
[2023-04-18 21:26] VITALS: BP 137/90; PULSE 54; RESP 19; O2SAT 97
[2023-04-18 23:00] VITALS: BP 141/62; PULSE 65; RESP 16; O2SAT 98
[2023-04-19] MEDS: MORPHINE SULFATE (*CRX) 4 MG/ML INJ IV PUSH ×2 (00:08→04:09)
[2023-04-19] MEDS: SODIUM CHLORIDE 0.9% IV 1,000 ML 999 ML IV CONT (00:08)
[2023-04-19 00:24] LABS: Basophils Absolute Auto 0.1 K/mm3 (0.0-0.1); Eosinophils Absolute Auto 0.2 K/mm3 (0-0.3); Eosinophils Percent Auto 2.5 % (0-4.4); Hematocrit 45.2 % (42.0-52.0); Hemoglobin 15.3 g/dL (14.0-18.0); Immature Granulocyte Absolute 0.07 K/mm3 (0.00-0.031); Immature Platelet Fraction Pct 2.3 % (0.9-11.2); Lymphocytes Percent Auto 35.1 % (18.3-44.2); Mean Corpuscular HGB Conc 33.8 g/dl (32-36); Mean Corpuscular Hemoglobin 32.6 pg (26-34); Mean Corpuscular Volume 96.4 fl (80-100); Mean Platelet Volume 9.2 fl (7.4-10.4); Monocytes Absolute Auto 0.5 K/mm3 (0.1-0.6); Neutrophils Absolute Auto 3.6 K/mm3 (1.3-6.7); Neutrophils Percent Auto 53.4 % (45.5-73.1); Platelet Count Result 103 k/mm3 (150-375); Red Blood Count 4.69 M/mm3 (4.6-6.20); Red Cell Distribution Width 13.3 % (11.5-14.5); White Blood Count 6.8 K/mm3 (4.5-10.0)
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
[2023-04-19 01:00] VITALS: BP 137/94; PULSE 70; RESP 14; O2SAT 97
[2023-04-19 01:06] LABS: Alanine Aminotransferase 178 U/L (6-50); Albumin Level 4.2 g/dL (3.5-5.1); Alkaline Phosphatase 91 U/L (38-126); Anion Gap 6 mmol/L (8-16); Aspartate Amino Transferase 155 U/L (17-59); Bilirubin,Total 1.2 mg/dL (0.2-1.3); Blood Urea Nitrogen 15 mg/dL (9-20); Calcium 9.3 mg/dL (8.4-10.2); Carbon Dioxide 26 mmol/L (22-30); Chloride 105 mmol/L (98-107); Estimated CRCL calculation 147 ml/min; Estimated Glomerular Filt Rate > 60; Glucose 101 mg/dL (65-110); Magnesium 1.9 mg/dL (1.6-2.3); Sodium 137 mmol/L (137-145)
--- NOTE | 2023-04-19 03:00 | PC.NURSE ---
pt. removed monitoring devices
[2023-04-19 03:23] LABS: Estimated CRCL calculation 131 ml/min; Estimated Glomerular Filt Rate > 60
[2023-04-19] MEDS: BELLADONNA ALK/PHENOB ELIX 10 ML, MAG HYDROX/ALUMINUM HYD/SIMETH 30 ML, LIDOCAINE HCL 2... PO (04:08)
[2023-04-19 04:40] VITALS: BP 129/87; PULSE 97; RESP 20; O2SAT 95
[2023-04-19 06:47] VITALS: BP 127/74; PULSE 81; RESP 14; O2SAT 95
[2023-04-19 07:38] VITALS: BP 121/83; PULSE 68; RESP 16; O2SAT 95
--- NOTE | 2023-04-19 08:04 | ADMGEN ---
This patient, Kyle Santiago, was admitted to Medical Room 249-01. Patient/family oriented to hospital policies and general routines including ID bracelet, bed and alarms, visiting hours, pain management, procedures, bathroom and other care routines, personal items, smoking policy, room service/diet, and visiting hours. Information on how to activate the Rapid Response Team has been discussed. Patient/Family are encouraged to report perceived risks to care and to ask questions if they do not understand what they are told or what they should do.
[2023-04-19 08:05] VITALS: BP 126/71; PULSE 60; RESP 18; TEMP 36.4; O2SAT 97
[2023-04-19] MEDS: MORPHINE SULFATE (*CRX) 2 MG/ML INJ IV PUSH (08:25)
[2023-04-19] MEDS: SODIUM CHLORIDE 0.9% IV 1,000 ML 125 ML IV CONT (08:27)
[2023-04-19 08:33] VITALS: BMI 36.3
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
[2023-04-19] MEDS: oxyCODONE HCL (*CRX) 2.5 MG TAB IR PO (09:40)
[2023-04-19] MEDS: PHENOL/SOD PHENO SPRAY CHERRY (*BKC) 1 SPRAY MUCOUS MEM ×2 (09:42→13:04)
--- NOTE | 2023-04-19 12:42 | PM.SD2 ---
Same Day Admit/Disch: HPI History of Present Illness Chief complaint: Oropharynx Burning/Difficulty Swallowing Narrative: 37-year-old male with history of anxiety, depression, alcoholic fatty liver disease, hepatitis-C (genotype 3, finished and December 2022), alcoholism is presenting with throat pain after healing canister discharged in his mouth.? He admits to active suicidal ideation and has seen psychiatry in the past and tried multiple medications with little relief.? He has tried to cut down on his alcohol but is struggling.? He denies chest pain, shortness of breath, nausea, vomiting or diarrhea.? No fevers or chills.? He states he has been unable to eat or drink anything due to the significant pain in his throat. [facility] Past Medical History Medical History Alcohol abuse Bloating Elevated liver function tests Epigastric pain GERD (gastroesophageal reflux disease) Hematochezia Hepatic steatosis Hepatitis C antibody positive in blood Hx of adenomatous colonic polyps Hx of intravenous drug use in remission Nausea No significant past medical history Surgical History Surgical History No significant past surgical history Family History Family History Father Cancer Skin cancer Anxiety Mother Cancer Cancer of kidney Depression Anxiety Other No significant family history Social History Social History Smoking packs per day: 0.5 Smoking cigarettes per day: 10.0 Years smoked: 7 Smoking pack-years: 3.50 Smoking status: Former smoker Tobacco type: cigarettes Smoking end date: 05/06/14 Alcohol intake: current Drinks per week: 2 Alcohol use details: a few beers a week - formerly was drinking heavily Substance use: never Substance use type: does not use Last use: 2012 Lack of Transportation: No Lack of Food: Never True Current Housing: I Have Housing Concerned About Future Housing: No Difficulty Paying Gas/Electric Bills: No Difficulty Paying for Meds: No Currently Unemployed: No Education: Associate Degree Difficulty w/ Childcare or Family Care: No Living arrangements: with family Occupation/Education: occupation Spiritual care concerns: No Same Day Admit/Disch: Med Pre-admit Medications Home Medications Medication Instructions Recorded Confirmed Type multivitamin 1 tablet PO DAILY 05/03/22 04/19/23 History ondansetron 4 mg disintegrating 4 mg PO Q8H PRN nausea and 02/07/23 04/19/23 Rx tablet vomiting #15 tabs omeprazole 40 mg capsule,delayed 40 mg PO BID 6 weeks #84 caps 02/12/23 04/19/23 Rx release lorazepam 0.5 mg tablet (Ativan) 0.5 mg PO BID PRN anxiety #30 tabs 04/10/23 04/19/23 Rx oxycodone 5 mg capsule 5 mg PO Q8H PRN pain #14 caps 04/19/23 Rx Review of Systems Review of Systems 12 point review of systems was assessed and was negative except as noted in the HPI Exam Narrative: General: No acute distress, alert and oriented per baseline HEENT: Atraumatic, normocephalic, mucous membranes moist CV: Regular rate and rhythm, S1, S2 Lungs: Clear to auscultation bilaterally, no rales or crackles noted, no wheezes, good air entry Abdomen: Soft, nontender, nondistended Extremities: Normal to inspection Skin: No rashes noted, no lesions or wounds seen Psych: Euthymic, normal affect DS: Data Data Completed and Pending Labs on day of discharge: Labs from last 24 hours 04/19/23 04/19/23 02:02 00:07 WBC 6.8 RBC 4.69 Hgb 15.3 Hct 45.2 MCV 96.4 MCH 32.6 MCHC 33.8 RDW 13.3 Plt Count 103 L MPV 9.2 Immature Gran % (Auto) 1.0 H Neut % (Auto) 53.4 Lymph % (Auto) 35.1 Mercer % (Auto) 7.0 Eos % (Auto) 2.5 Baso % (Auto) 1.0 Lymph # (Auto) 2.40 Mercer # (Auto) 0.5
== END 2023-04-19 13:15 | disposition home or self-care (01) ==
LOC: ANHED 04-19 06:20 → ANH2MED 04-19 11:12
PROVIDERS: Admitting Provider Internal Medicine; Emergency Provider Emergency Medicine; PCP Family Medicine; Visit Provider Student in an Organized Health Care Education/Training Program
DX: T28.0XXA Burn of mouth and pharynx, initial encounter (principal); Y92.9 Unspecified place or not applicable; K70.0 Alcoholic fatty liver; F10.10 Alcohol abuse, uncomplicated; K21.9 Gastro-esophageal reflux disease without esophagitis; R76.8 Other specified abnormal immunological findings in serum; F41.9 Anxiety disorder, unspecified; F32.A Depression, unspecified; R45.851 Suicidal ideations; Z87.891 Personal history of nicotine dependence; Z79.899 Other long term (current) drug therapy
CPT/HCPCS: 36415; 70491; 71045; 80053; 83735; 85025; 85055; 96361; 96374; 96376; 99285; A9270; G0378; J2270; J7030; Q9967

== ENCOUNTER 2023-05-04 01:36 | Inpatient (IN) | payer OTHER, SELFPAY ==
[2023-05-04] VITALS (12 sets, daily range): BP systolic 112–158; BP diastolic 73–95; PULSE 73–88; RESP 12–20; TEMP 36.4–36.8; O2SAT 96–100; BMI 36.8
--- NOTE | ~2023-05-04 | CT_ITS ---
EXAMINATION: CT abdomen pelvis w con DATE: 05/04/2023 03:48 INDICATION: Right upper quadrant abdominal pain. TECHNIQUE: Computed tomography (CT) of the abdomen and pelvis was performed with 100 mL Omnipaque 350 intravenous contrast. Automated exposure control and iterative reconstruction technique were employe d. The dose-length product was 1380.53 mGy-cm. COMPARISON: CT abdomen and pelvis 02/07/2023 FINDINGS: The visualized portions of the lung bases are clear without pneumonia or pleural effusion. The heart size is normal. No pericardial effusion. There is a 5 mm cyst in the liver. The gallbladder is normal in size. There is mild fat stranding around the head of the pancreas, consistent with acut e interstitial pancreatitis. The adrenal glands and kidneys are normal. There is a small right inguin al hernia containing fat. There are no dilated loops of bowel. The appendix is normal. There are no p athologically enlarged lymph nodes. There is no free intraperitoneal fluid. There is mild lumbar spon dylosis. IMPRESSION: 1. Acute interstitial pancreatitis. Reviewed, dictated and finalized at location A. OM BLEACHER
--- NOTE | ~2023-05-04 | US_ITS ---
EXAMINATION: US abdomen limited DATE: 05/04/2023 08:50 INDICATION: Pancreatitis. Hyperbilirubinemia. TECHNIQUE: Multiple grayscale and Doppler ultrasound images of the abdomen were obtained. COMPARISON: CT abdomen and pelvis 05/04/2023 FINDINGS: The visualized portion of the head of the pancreas is normal, but sensitivity is decreased by obesity. The liver is normal. There is normal flow in main portal vein. The gallbladder is normal in size. No gallstones or gallbladder wall thickening. There was no sonographic Isaacs sign. The comm on duct is normal and measures 4 mm. Right kidney is normal. IMPRESSION: 1. Normal right upper quadrant ultrasound. Reviewed, dictated and finalized at location A. ING NURSE
[2023-05-04 02:38] LABS: Basophils Absolute Auto 0.1 K/mm3 (0.0-0.1); Basophils Percent Auto 0.5 % (0.2-1.2); Eosinophils Absolute Auto 0.1 K/mm3 (0-0.3); Hematocrit 45.2 % (42.0-52.0); Hemoglobin 15.6 g/dL (14.0-18.0); Immature Granulocyte Absolute 0.04 K/mm3 (0.00-0.031); Immature Granulocyte Percent A 0.3 % (0-0.5); Lymphocytes Absolute Auto 2.56 K/mm3 (0.9-3.2); Mean Corpuscular HGB Conc 34.5 g/dl (32-36); Mean Corpuscular Hemoglobin 31.8 pg (26-34); Mean Corpuscular Volume 92.1 fl (80-100); Mean Platelet Volume 9.8 fl (7.4-10.4); Monocytes Absolute Auto 0.6 K/mm3 (0.1-0.6); Monocytes Percent Auto 5.2 % (2.6-8.5); Neutrophils Absolute Auto 8.8 K/mm3 (1.3-6.7); Platelet Count Result 118 k/mm3 (150-375); Red Blood Count 4.91 M/mm3 (4.6-6.20); Red Cell Distribution Width 12.9 % (11.5-14.5); White Blood Count 12.2 K/mm3 (4.5-10.0)
[2023-05-04 03:18] LABS: Alanine Aminotransferase 177 U/L (6-50); Albumin Level 4.6 g/dL (3.5-5.1); Alkaline Phosphatase 98 U/L (38-126); Anion Gap 11 mmol/L (8-16); Aspartate Amino Transferase 108 U/L (17-59); Bilirubin,Total 1.8 mg/dL (0.2-1.3); Blood Urea Nitrogen 8 mg/dL (9-20); Calcium 9.4 mg/dL (8.4-10.2); Carbon Dioxide 28 mmol/L (22-30); Chloride 98 mmol/L (98-107); Estimated CRCL calculation 145 ml/min; Estimated Glomerular Filt Rate > 60; Glucose 120 mg/dL (65-110); Lipase 306 U/L (23-300); Potassium 3.9 mmol/L (3.4-5.0); Sodium 137 mmol/L (137-145)
[2023-05-04] MEDS: ONDANSETRON INJ 4 MG/2 ML VIAL IV PUSH ×3 (03:33→17:19)
[2023-05-04] MEDS: SODIUM CHLORIDE 0.9% IV 1,000 ML 999 ML IV CONT (03:33)
[2023-05-04] MEDS: MORPHINE SULFATE (*CRX) 4 MG/ML INJ IV PUSH (03:34)
[2023-05-04 03:46] LABS: Influenza A QL RT-PCR Negative (Negative); Influenza B QL RT-PCR Negative (Negative); RSV RNA, RT-PCR Negative (Negative); SARS-CoV-2 RNA PCR Negative (Negative)
[2023-05-04 04:17] LABS: Appearance Urine Clear (Clear); Bacteria Urine None Seen /hpf; Bilirubin Urine 2+ (Negative); Blood Urine Negative (Negative); Color Urine Orange (Yellow); Glucose Urine UA Negative (Negative); Ketones Urine 1+ mg/dL (Negative); Leukocyte Esterase Ur 1+ LEU/UL (Negative); Need Manual Microscopic Reviewed; Nitrate Urine Positive (Negative); Non Pathogenic Casts 0-2; Protein Urine Trace mg/dL (Negative); RBC Urine 0-2 /hpf (0-2); Specific Grav Ur 1.034 (1.001-1.035); Squamous Epithelial Cell Urine None seen /hpf (Few); WBC Urine 0-5 /hpf; pH Urine 6.5 (5.0-9.0)
[2023-05-04 04:18] LABS: Add Urine Microscopic? YES
[2023-05-04] MEDS: HYDROmorphone HCL INJ (*CRX) 1 MG/ML SYR IV PUSH ×4 (05:09→21:46)
--- NOTE | 2023-05-04 05:09 | ED.GENADULT ---
HPI - General Adult General Chief complaint: Nausea/Vomiting/Diarrhea Stated complaint: upper abd pain, N/V/D Time Seen by Provider: 05/04/23 03:19 History of Present Illness HPI narrative: Patient 37-year-old gentleman presents emergency department with chief complaint of abdominal pain. The patient reports that he has pain in the right upper quadrant and epigastric region reports that radiates to his back porch he has not been able to keep fluid down. The patient reports no diarrhea reports some the pain is not improved by anything reports has worsened by food or liquids. Related Data Home Medications Medication Instructions Recorded Confirmed multivitamin 1 tablet PO DAILY 05/03/22 04/19/23 Allergies Allergy/AdvReac Type Severity Reaction Status Date / Time gabapentin Allergy Intermediate Muscle Verified 05/04/23 03:16 Spasms Review of Systems Review of Systems: A 10 system review of systems was completed on the patient and is negative except for what is stated in the HPI. Nursing and ancillary documentation was reviewed. [facility] Past Medical History Medical History Alcohol abuse Bloating Elevated liver function tests Epigastric pain GERD (gastroesophageal reflux disease) Hematochezia Hepatic steatosis Hepatitis C antibody positive in blood Hx of adenomatous colonic polyps Hx of intravenous drug use in remission Nausea No significant past medical history Surgical History Surgical History No significant past surgical history Family History Family History Father Cancer Skin cancer Anxiety Mother Cancer Cancer of kidney Depression Anxiety Other No significant family history Social History Social History Smoking packs per day: 0.5 Smoking cigarettes per day: 10.0 Years smoked: 7 Smoking pack-years: 3.50 Smoking status: Former smoker Tobacco type: cigarettes Smoking end date: 05/06/14 Alcohol intake: current Drinks per week: 2 Alcohol use details: a few beers a week - formerly was drinking heavily Substance use: never Substance use type: does not use Last use: 2013 Do You Feel Safe in your Home?: Yes Lack of Transportation: No Lack of Food: Never True Current Housing: I Have Housing Concerned About Future Housing: No Difficulty Paying Gas/Electric Bills: No Difficulty Paying for Meds: No Currently Unemployed: No Education: Associate Degree Difficulty w/ Childcare or Family Care: No Living arrangements: with family Occupation/Education: occupation Spiritual care concerns: No Exam Narrative: GENERAL: Well-appearing, well-nourished, and in no acute distress. HEAD: Normocephalic, atraumatic. EYES: PERRLA and EOMI. ENT: Nares clear, no rhinorrhea or epistaxis. Mucous membranes moist. NECK: Supple. CHEST: Clear to auscultation. No respiratory distress. HEART: Regular rate and rhythm. No murmur heard. Normal peripheral pulses. ABDOMEN: Soft, tenderness to palpation epigastric and right upper quadrant, nondistended, normal active bowel sounds. EXTREMITIES: Normal range of motion. No edema. SKIN: Warm, dry, no rash. NEURO: No focal deficits. Alert and oriented x3. PSYCH: Normal mood and affect. Course Vital Signs Vital signs: Vital Signs Temperature 36.4 C 05/04/23 01:40 Pulse Rate 78 05/04/23 01:40 Respiratory Rate 16 05/04/23 01:40 Blood Pressure 152/95 H 05/04/23 01:40 Pulse Oximetry 100 05/04/23 01:40 Oxygen Delivery Room Air 05/04/23 01:40 Temperature 36.4 C 05/04/23 01:40 Pulse Rate 79 05/04/23 05:46 Respiratory Rate 13 05/04/23 05:46 Blood Pressure 142/79 H 05/04/23 05:46 Pulse Oximetry 97 05/04/23 05:46 Oxygen [facility]
--- NOTE | 2023-05-04 07:19 | PC.NURSE ---
Report given to FLAKO varela at this time.
[2023-05-04] MEDS: SODIUM CHLORIDE 0.9% IV 1,000 ML 125 ML IV CONT ×2 (10:10→17:16)
[2023-05-04] MEDS: HYDROmorphone HCL INJ (*CRX) 1 MG/ML SYR 0.5 MG IV PUSH (10:16)
--- NOTE | 2023-05-04 12:08 | PM.IMHP ---
H&P: HPI History of Present Illness Date/Time: 05/04/23 12:08 Chief Complaint: abdominal pain Narrative: 37-year-old male with past medical history significant for gastritis and allergic rhinitis is presenting with acute on chronic abdominal pain. States over the last year he has had progressively worsening intermittent epigastric pain. He saw a GI doctor who did an EGD and thought he might have gastritis and started him on a PPI. He states this did not do much for his symptoms. He is presenting with severe abdominal pain, unlike the severity of his prior pain but in a similar location. It is associated with some nausea, no emesis or diarrhea. In the ER, he was found to have acute pancreatitis with elevated lipase and inflammation noted on imaging. He is admitted for pain control and monitoring. 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 Ultrasound of his gallbladder was benign, no signs of gallstones. He is unsure if he has had his cholesterol checked and denies being bitten by scorpion. Review of Systems Review of Systems: 12 point review of systems was assessed and was negative except as noted in the HPI [facility] Past Medical History Medical History Alcohol abuse Bloating Elevated liver function tests Epigastric pain GERD (gastroesophageal reflux disease) Hematochezia Hepatic steatosis Hepatitis C antibody positive in blood Hx of adenomatous colonic polyps Hx of intravenous drug use in remission Nausea No significant past medical history Surgical History Surgical History No significant past surgical history Family History Family History Father Cancer Skin cancer Anxiety Mother Cancer Cancer of kidney Depression Anxiety Other No significant family history Social History Social History Smoking packs per day: 0.5 Smoking cigarettes per day: 10.0 Years smoked: 7 Smoking pack-years: 3.50 Smoking status: Former smoker Tobacco type: cigarettes Smoking end date: 05/06/14 Alcohol intake: current Drinks per week: 4 Alcohol use details: a few beers a week - formerly was drinking heavily Substance use: never Substance use type: does not use Last use: 2013 Do You Feel Safe in your Home?: Yes Lack of Transportation: No Lack of Food: Never True Current Housing: I Have Housing Concerned About Future Housing: No Difficulty Paying Gas/Electric Bills: No Difficulty Paying for Meds: No Currently Unemployed: No Education: Associate Degree Difficulty w/ Childcare or Family Care: No Living arrangements: with family Occupation/Education: occupation Spiritual care concerns: No Meds Home Medications and Allergies Home Medications Medication Instructions Recorded Confirmed Type multivitamin 1 tablet PO DAILY 05/03/22 05/04/23 History ondansetron 4 mg disintegrating 4 mg PO Q8H PRN nausea and 02/07/23 05/04/23 Rx tablet vomiting #15 tabs omeprazole 40 mg capsule,delayed 40 mg PO BID 6 weeks #84 caps 02/12/23 05/04/23 Rx release lorazepam 0.5 mg tablet (Ativan) 0.5 mg PO BID PRN anxiety #30 tabs 04/10/23 05/04/23 Rx fexofenadine 180 mg tablet 180 mg PO DAILY 05/04/23 05/04/23 History Allergies Allergy/AdvReac Type Severity Reaction Status Date / Time gabapentin Allergy Intermediate Muscle Verified 05/04/23 12:52 rigidity; hives; sob buspirone Allergy Muscle Verified 05/04/23 12:54 rigidity; hives; sob Vital Signs Vital Signs - 24 hr 05/04/23 01:40 05/04/23 05:11 05/04/23 03:52 Temperature 97.6 F Pulse Rate 78 74 82 Respiratory Rate 16 16 19
[2023-05-05] MEDS: HYDROmorphone HCL INJ (*CRX) 1 MG/ML SYR IV PUSH ×2 (01:54→10:07)
[2023-05-05] MEDS: SODIUM CHLORIDE 0.9% IV 1,000 ML 125 ML IV CONT ×2 (02:15→10:08)
[2023-05-05] MEDS: KETOROLAC 15 MG/ML VIAL (*BKC) IV PUSH (05:06)
[2023-05-05 06:00] VITALS: BP 144/87; PULSE 80; RESP 18; TEMP 36.5; O2SAT 97
[2023-05-05 06:25] LABS: Basophils Percent Auto 0.5 % (0.2-1.2); Eosinophils Absolute Auto 0.3 K/mm3 (0-0.3); Eosinophils Percent Auto 3.3 % (0-4.4); Hematocrit 38.4 % (42.0-52.0); Hemoglobin 13.1 g/dL (14.0-18.0); Immature Granulocyte Absolute 0.04 K/mm3 (0.00-0.031); Immature Granulocyte Percent A 0.5 % (0-0.5); Immature Platelet Fraction Pct 3.7 % (0.9-11.2); Lymphocytes Absolute Auto 1.83 K/mm3 (0.9-3.2); Lymphocytes Percent Auto 20.6 % (18.3-44.2); Mean Corpuscular HGB Conc 34.1 g/dl (32-36); Mean Corpuscular Volume 93.7 fl (80-100); Mean Platelet Volume 10.1 fl (7.4-10.4); Monocytes Absolute Auto 0.7 K/mm3 (0.1-0.6); Neutrophils Percent Auto 67.1 % (45.5-73.1); Platelet Count Result 91 k/mm3 (150-375); Red Cell Distribution Width 12.7 % (11.5-14.5); White Blood Count 8.9 K/mm3 (4.5-10.0)
[2023-05-05 06:36] LABS: Alanine Aminotransferase 120 U/L (6-50); Albumin Level 3.7 g/dL (3.5-5.1); Alkaline Phosphatase 80 U/L (38-126); Anion Gap 11 mmol/L (8-16); Aspartate Amino Transferase 79 U/L (17-59); Bilirubin,Total 1.7 mg/dL (0.2-1.3); Blood Urea Nitrogen 8 mg/dL (9-20); Calcium 8.5 mg/dL (8.4-10.2); Carbon Dioxide 22 mmol/L (22-30); Chloride 102 mmol/L (98-107); Cholesterol 140 mg/dL (0-200); Estimated CRCL calculation 192 ml/min; Estimated Glomerular Filt Rate > 60; Glucose 109 mg/dL (65-110); HDL Direct 21 mg/dL; Potassium 3.4 mmol/L (3.4-5.0); Sodium 135 mmol/L (137-145); Triglycerides 240 mg/dL (<150)
[2023-05-05 06:47] LABS: LDL Cholesterol Direct 64 mg/dL
[2023-05-05 06:49] LABS: Hemoglobin A1C 5.6 % (<5.7)
--- NOTE | 2023-05-05 12:59 | PM.IMPN ---
Progress Note: A&P Assessment and Plan (1) Acute pancreatitis: Code(s): K85.90 - Acute pancreatitis without necrosis or infection, unspecified Status: Acute Assessment and Plan: ADAT, d/c IV fluids, supportive care Check A1c, lipid panel (2) GERD (gastroesophageal reflux disease): Code(s): K21.9 - Gastro-esophageal reflux disease without esophagitis Status: Acute Assessment and Plan: Continue PPI (3) Hepatic steatosis: Code(s): K76.0 - Fatty (change of) liver, not elsewhere classified Status: Acute (4) Alcohol abuse: Code(s): F10.10 - Alcohol abuse, uncomplicated Status: Acute (5) Hepatitis C antibody positive in blood: Code(s): R76.8 - Other specified abnormal immunological findings in serum Status: Acute Assessment and Plan: f/u outpatient likely the cause of patient's symptoms Plan DVT prophylaxis with SCDs GI prophylaxis with PPI Code status full code Subjective Date/time seen: 05/05/23 12:59 Interval history: No overnight events noted. No chest pain or shortness of breath. No nausea, vomiting or diarrhea. No fevers or chills. Review of Systems Review of Systems: 12 point review of systems was assessed and was negative except as noted in the HPI Exam Narrative: General: No acute distress, alert and oriented per baseline HEENT: Atraumatic, normocephalic, mucous membranes moist CV: Regular rate and rhythm, S1, S2 Lungs: Clear to auscultation bilaterally, no rales or crackles noted, no wheezes, good air entry Abdomen: Soft, nontender, nondistended Extremities: Normal to inspection Skin: No rashes noted, no lesions or wounds seen Psych: Euthymic, normal affect Objective Data Vital Signs Vital Signs: Vital Signs - 24 hr 05/04/23 14:00 05/04/23 21:57 05/04/23 20:00 Temperature 97.7 F 98.3 F Pulse Rate 74 83 Respiratory Rate 12 20 Blood Pressure 124/83 142/88 H Pulse Oximetry 98 97 97 Oxygen Delivery Room Air 05/05/23 06:00 05/05/23 08:00 Temperature 97.7 F Pulse Rate 80 Respiratory Rate 18 Blood Pressure 144/87 H Pulse Oximetry 97 Oxygen Delivery Room Air Intake/Output Intake/Output: Intake & Output 12/2805/03/23 05/04/23 05/05/23 23:59 23:59 23:59 23:59 Intake Total 1899 2024 Balance 1899 2024 Meds/Results Medications: Active Medications Generic Name Dose Route Start Last Admin Trade Name Freq PRN Reason Stop Dose Admin Hydromorphone HCl 1 mg 05/04/23 13:57 05/05/23 10:07 Hydromorphone Hcl Inj (*Crx) 1 Mg/Ml Syr IV PUSH 1 mg Q3H PRN Administration Pain Rated 7-10 Sodium Chloride 1,000 mls @ 125 mls/hr 05/04/23 09:05 05/05/23 10:08 Normal Saline Iv IV CONT 125 mls/hr .Q8H RAYSA Administration Ondansetron HCl 4 mg 05/04/23 09:01 05/04/23 17:19 Ondansetron Inj 4 Mg/2 Ml Vial IV PUSH 4 mg Q4H PRN Administration Nausea Radiology Results: ITS Impressions Abdomen/Pelvis CT 05/04/23 06:04 IMPRESSION: 1. Acute interstitial pancreatitis. Abdomen Ultrasound 05/04/23 08:51 IMPRESSION: 1. Normal right upper quadrant ultrasound. Labs Labs: Laboratory Results - last 24 hr 05/05/23 06:09 WBC 8.9 RBC 4.10 L Hgb 13.1 L Hct 38.4 L MCV 93.7 MCH 32.0 MCHC 34.1 RDW 12.7 Plt Count 91 L MPV 10.1 Immature Gran % (Auto) 0.5 Neut % (Auto) 67.1 Lymph % (Auto) 20.6 Leon % (Auto) 8.0 Eos % (Auto) 3.3 Baso % (Auto) 0.5 Lymph # (Auto) 1.83 Leon # (Auto) 0.7 H Eos # (Auto) 0.3 Baso # (Auto) 0.0 Abs Immat Gran (auto) 0.04 H Absolute Neuts (auto) 6.0 Absolute Nucleated RBC 0.0 Nucleated RBC % 0.0 % Immature Plt Fraction 3.7 Sodium 135 L Potassium 3.4 Chloride 102 Carbon Dioxide 22 Anion Gap 11 BUN 8 L Creatinine 0.60 L Estim Creat Clear Calc 192 Estimated GFR > 60 Glucose 109 Hemoglobin A1c 5.6 Calcium 8.5 Total Bilirubi
[2023-05-05 13:19] VITALS: BP 132/79; PULSE 80; RESP 16; TEMP 37; O2SAT 97
[2023-05-05] MEDS: PANTOPRAZOLE 40 MG TABLET PO (17:27)
--- NOTE | 2023-05-24 11:43 | PM.DS ---
DS: Admitting Diagnosis Discharge Date 05/05/23 Admitting Diagnosis abdominal pain DS: Discharge Diagnosis Discharge Diagnosis (1) Acute pancreatitis: Code(s): K85.90 - Acute pancreatitis without necrosis or infection, unspecified Status: Acute Assessment and Plan: ADAT, d/c IV fluids, supportive care Check A1c, lipid panel (2) GERD (gastroesophageal reflux disease): Code(s): K21.9 - Gastro-esophageal reflux disease without esophagitis Status: Acute Assessment and Plan: Continue PPI (3) Hepatic steatosis: Code(s): K76.0 - Fatty (change of) liver, not elsewhere classified Status: Acute (4) Alcohol abuse: Code(s): F10.10 - Alcohol abuse, uncomplicated Status: Acute (5) Hepatitis C antibody positive in blood: Code(s): R76.8 - Other specified abnormal immunological findings in serum Status: Acute Assessment and Plan: f/u outpatient likely the cause of patient's symptoms Plan DVT prophylaxis with SCDs GI prophylaxis with PPI Code status full code DS: Summary Hospital Course Hospital Course: 37-year-old male with past medical history significant for gastritis, alcohol abuse, hepatitis C and allergic rhinitis is presenting with acute on chronic abdominal pain.? States over the last year he has had progressively worsening intermittent epigastric pain.? GI was consulted and diagnosed patient with acute pancreatitis, likely 2/2 alcohol. All symptoms resolved with supportive care. Please see above and med rec for details. Patient was discharged in stable condition with close outpatient follow-up. Time Spent with Patient Time attestation: Total time spent providing and/or coordinating discharge services: Exam Narrative: General: No acute distress, alert and oriented per baseline HEENT: Atraumatic, normocephalic, mucous membranes moist CV: Regular rate and rhythm, S1, S2 Lungs: Clear to auscultation bilaterally, no rales or crackles noted, no wheezes, good air entry Abdomen: Soft, nontender, nondistended Extremities: Normal to inspection Skin: No rashes noted, no lesions or wounds seen Psych: Euthymic, normal affect Discharge Plan Discharge Attending physician on discharge: Erin Hoyt Consulting providers: Dashawn Young V. Discharging Clinician: Erin Hoyt Patient Disposition: Home, Self-Care Activity: as tolerated Diet: as tolerated Patient Instructions: Antibiotic Form Stand Alone Forms: General Discharge Information Follow-up/Referrals: Sirena Gay MD [Primary Care Provider] - Discharge Medications: Continued multivitamin Tablet 1 tablet PO DAILY omeprazole 40 mg capsule,delayed release(DR/EC) 40 mg PO BID 42 Days Qty: 84 3RF ondansetron 4 mg tablet,disintegrating 4 mg PO Q8H PRN (Reason: nausea and vomiting) Qty: 15 0RF fexofenadine 180 mg Tablet 180 mg PO DAILY lorazepam [Ativan] 0.5 mg tablet 0.5 mg PO BID PRN (Reason: anxiety) Qty: 30 0RF Date of admission: 05/04/23 09:01 Primary Care Provider: Sirena Gya Admitting Provider: Padmini Meija Attending physician on admission: Erin Hoyt Condition: Stable
== END 2023-05-05 18:44 | disposition home or self-care (01) | DRG 440 ==
LOC: ANHED 07:29 → ANH3MEDSUR 11:53
PROVIDERS: Admitting Provider General Practice; Emergency Provider Emergency Medicine; PCP Family Medicine; Visit Provider Student in an Organized Health Care Education/Training Program
DX: K85.90 Acute pancreatitis without necrosis or infection, unspecified (principal); F10.10 Alcohol abuse, uncomplicated; K21.9 Gastro-esophageal reflux disease without esophagitis; K76.0 Fatty (change of) liver, not elsewhere classified; R76.8 Other specified abnormal immunological findings in serum; Z28.21 Immunization not carried out because of patient refusal; Z87.891 Personal history of nicotine dependence; Z20.822 Contact with and (suspected) exposure to COVID-19
CPT/HCPCS: 36415; 74177; 76705; 80053; 80061; 81001; 83036; 83690; 85025; 85055; 87637; 96361; 96374; 96375; 99285; A9270; J1170; J1885; J2270; J2405; J7030; Q9967

== ENCOUNTER 2023-05-10 11:47 | Outpatient (CLI) | payer OTHER, SELFPAY ==
[2023-05-10 12:18] LABS: Alanine Aminotransferase 217 U/L (6-50); Albumin Level 4.5 g/dL (3.5-5.1); Alkaline Phosphatase 87 U/L (38-126); Anion Gap 11 mmol/L (8-16); Aspartate Amino Transferase 133 U/L (17-59); Bilirubin,Total 0.9 mg/dL (0.2-1.3); Blood Urea Nitrogen 16 mg/dL (9-20); Calcium 9.6 mg/dL (8.4-10.2); Carbon Dioxide 27 mmol/L (22-30); Chloride 104 mmol/L (98-107); Estimated Glomerular Filt Rate > 60; Glucose 132 mg/dL (65-110); Potassium 4.3 mmol/L (3.4-5.0); Sodium 142 mmol/L (137-145)
== END 2023-05-10 11:48 | disposition home or self-care (01) ==
LOC: ANHLAB 11:48
PROVIDERS: PCP Family Medicine; Visit Provider Nurse Practitioner
DX: K85.90 Acute pancreatitis without necrosis or infection, unspecified (principal); F10.10 Alcohol abuse, uncomplicated; K76.0 Fatty (change of) liver, not elsewhere classified
CPT/HCPCS: 36415; 80053

== ENCOUNTER 2023-08-14 11:04 | Emergency (ER) | payer OTHER, SELFPAY ==
--- NOTE | ~2023-08-14 | CT_ITS ---
EXAMINATION: CT abdomen pelvis w con DATE: 08/14/2023 12:36 INDICATION: Abdominal pain. Nausea and vomiting. TECHNIQUE: Computed tomography (CT) of the abdomen and pelvis was performed with 100 mL Omnipaque 350 intravenous contrast. Automated exposure control and iterative reconstruction technique were employe d. The dose-length product was 1626.12 mGy-cm. COMPARISON: CT abdomen and pelvis 05/04/2023 FINDINGS: The visualized portions of the lung bases demonstrate mild atelectasis. No pleural effusion . The heart size is normal. No pericardial effusion. There is diffuse hepatic steatosis. The gallblad braydon is normal. Calcifications in the spleen are consistent with old granulomatous disease. The pancre as, adrenal glands, and kidneys are normal. There is a right inguinal hernia containing fat. There ar e no dilated loops of bowel. The appendix is not visualized. There are no pathologically enlarged lym ph nodes. There is mild aortocaval, gastrohepatic, and periportal lymphadenopathy. There is mild lumb ar spondylosis. IMPRESSION: 1. Diffuse hepatic steatosis. 2. Mild abdominal lymphadenopathy, likely reactive. 3. Right inguinal hernia containing fat. Reviewed, dictated and finalized at location A.
[2023-08-14 11:07] VITALS: BP 175/116; PULSE 133; RESP 20; TEMP 36.6; O2SAT 100
[2023-08-14] MEDS: SODIUM CHLORIDE 0.9% IV 1,000 ML 999 ML IV CONT (11:31)
[2023-08-14] MEDS: ONDANSETRON INJ 4 MG/2 ML VIAL IV PUSH ×2 (11:33→13:55)
[2023-08-14 11:35] LABS: Basophils Absolute Auto 0.1 K/mm3 (0.0-0.1); Basophils Percent Auto 1.2 % (0.2-1.2); Eosinophils Absolute Auto 0.2 K/mm3 (0-0.3); Eosinophils Percent Auto 2.3 % (0-4.4); Hematocrit 49.5 % (42.0-52.0); Immature Granulocyte Absolute 0.05 K/mm3 (0.00-0.031); Immature Granulocyte Percent A 0.5 % (0-0.5); Lymphocytes Absolute Auto 2.87 K/mm3 (0.9-3.2); Lymphocytes Percent Auto 27.8 % (18.3-44.2); Mean Corpuscular HGB Conc 34.3 g/dl (32-36); Mean Corpuscular Hemoglobin 31.5 pg (26-34); Mean Corpuscular Volume 91.8 fl (80-100); Mean Platelet Volume 10.1 fl (7.4-10.4); Monocytes Absolute Auto 0.6 K/mm3 (0.1-0.6); Monocytes Percent Auto 6.2 % (2.6-8.5); Neutrophils Absolute Auto 6.4 K/mm3 (1.3-6.7); Platelet Count Result 159 k/mm3 (150-375); Red Blood Count 5.39 M/mm3 (4.6-6.20); Red Cell Distribution Width 13.3 % (11.5-14.5); White Blood Count 10.3 K/mm3 (4.5-10.0)
[2023-08-14] MEDS: HYDROmorphone HCL INJ (*CRX) 1 MG/ML SYR 0.5 MG IV PUSH (11:35)
[2023-08-14 11:36] VITALS: BP 143/75; PULSE 99; RESP 22; O2SAT 96
[2023-08-14 11:47] LABS: Alanine Aminotransferase 169 U/L (6-50); Albumin Level 5.1 g/dL (3.5-5.1); Alkaline Phosphatase 159 U/L (38-126); Aspartate Amino Transferase 174 U/L (17-59); Bilirubin,Total 1.1 mg/dL (0.2-1.3); Blood Urea Nitrogen 14 mg/dL (9-20); Calcium 9.8 mg/dL (8.4-10.2); Carbon Dioxide 18 mmol/L (22-30); Estimated CRCL calculation 121 ml/min; Estimated Glomerular Filt Rate > 60; Glucose 166 mg/dL (65-110); Lipase 114 U/L (23-300); Potassium 4.3 mmol/L (3.4-5.0); Sodium 138 mmol/L (137-145)
[2023-08-14 11:51] LABS: Anion Gap 11 mmol/L (4-12); Chloride 109 mmol/L (98-107)
[2023-08-14] MEDS: PROMETHAZINE HCL 25 MG/ML AMPUL 12.5 MG IV PUSH (12:12)
--- NOTE | 2023-08-14 12:24 | ED.ABDPAIN ---
HPI - Abdominal Pain General Chief Complaint: Abdominal Pain Stated Complaint: N/V - dark red emesis Time Seen by Provider: 08/14/23 11:17 History of Present Illness HPI narrative: patient is a 37-year-old male who presents ER with sudden onset abdominal pain and vomiting. This has happened to him apparently since she was a kid. He did recently have 1st time diagnosis of pancreatitis. Reports he just woke up this morning sharp vomiting. Some of the emesis has become dark red. He is not on a blood thinner no loss of consciousness. He has been seen by GI here. Related Data Home Medications Medication Instructions Recorded Confirmed multivitamin 1 tablet PO DAILY 05/03/22 05/10/23 fexofenadine 180 mg tablet 180 mg PO DAILY 05/04/23 05/10/23 Allergies Allergy/AdvReac Type Severity Reaction Status Date / Time gabapentin Allergy Intermediate Muscle Verified 08/14/23 11:13 rigidity; hives; sob buspirone Allergy Muscle Verified 08/14/23 11:13 rigidity; hives; sob Review of Systems Review of Systems: All systems reviewed & are unremarkable except as noted in HPI and below Constitutional: Constitutional: Reports no additional constitutional complaints ENT: Reports system reviewed and no additional complaints, except as documented Cardiovascular: Cardiovascular: Reports no additional cardiovascular complaints Respiratory: Respiratory: Reports no additional respiratory complaints Gastrointestinal: Gastrointestinal: Reports abdominal pain, Denies constipation, Denies diarrhea, Reports nausea and Reports vomiting Genitourinary: Genitourinary: Reports no additional male genitourinary complaints Musculoskeletal: Musculoskeletal: Reports no additional musculoskeletal complaints [facility] Past Medical History Medical History (Updated 08/14/23 @ 15:41 by Caio Weber MD) Alcohol abuse Alcoholic fatty liver Alcoholic hepatitis Bloating Chronic hepatitis C Elevated liver function tests Epigastric pain GERD (gastroesophageal reflux disease) Hematochezia Hepatic steatosis Hepatitis C antibody positive in blood Hx of adenomatous colonic polyps Hx of intravenous drug use in remission Nausea No significant past medical history Obesity Surgical History Surgical History No significant past surgical history Family History Family History Father Cancer Skin cancer Anxiety Mother Cancer Cancer of kidney Depression Anxiety Other No significant family history Social History Social History Smoking packs per day: 0.5 Smoking cigarettes per day: 10.0 Years smoked: 7 Smoking pack-years: 3.50 Smoking status: Former smoker Tobacco type: cigarettes Smoking end date: 05/06/14 Alcohol intake: current Drinks per week: 4 Alcohol use details: a few beers a week - formerly was drinking heavily Substance use: never Substance use type: does not use Last use: 2013 Do You Feel Safe in your Home?: Yes Lack of Transportation: No Lack of Food: Never True Current Housing: I Have Housing Concerned About Future Housing: No Difficulty Paying Gas/Electric Bills: No Difficulty Paying for Meds: No Currently Unemployed: No Education: Associate Degree Difficulty w/ Childcare or Family Care: No Living arrangements: with family Occupation/Education: occupation Spiritual care concerns: No Exam Narrative: GENERAL: Uncomfortable-appearing, obese, and in mild distress. HEAD: Normocephalic, atraumatic. ENT: Mucous membranes moist. NECK: Supple. CHEST: Clear to auscultation. No respiratory distress. HEART: Regular rate and rhythm. Normal peripheral pulses. ABDOMEN: Soft, mild epigastric tenderness, nondistended, normal active bowel sounds. EXTREMITIES: Normal range of motio
[2023-08-14] MEDS: PANTOPRAZOLE SODIUM IV 40 MG VIAL IV PUSH (12:41)
[2023-08-14] MEDS: SODIUM CHLORIDE 0.9% IV 50 ML (12:46)
--- NOTE | 2023-08-14 13:46 | PC.NURSE ---
No blood has been noted to be seen in patient's emesis while he has been in the ED.
[2023-08-14 14:23] LABS: Appearance Urine Clear (Clear); Bacteria Urine None Seen /hpf; Bilirubin Urine Negative (Negative); Blood Urine Negative (Negative); Color Urine Yellow (Yellow); Glucose Urine UA Negative (Negative); Hyaline Casts Urine Present /lpf; Ketones Urine Negative (Negative); Leukocyte Esterase Ur Negative LEU/UL (Negative); Nitrate Urine Negative (Negative); Protein Urine 1+ mg/dL (Negative); RBC Urine 0-2 /hpf (0-2); Squamous Epithelial Cell Urine None Seen /hpf (Few); Urobilinogen Urine 0.2 mg/dL (<2.0); WBC Urine 0-5 /hpf (0-3)
[2023-08-14 14:24] LABS: Specific Grav Ur 1.076 (1.001-1.035)
[2023-08-14 14:26] LABS: Add Urine Microscopic? YES
[2023-08-14 16:02] VITALS: BP 129/99; PULSE 76; RESP 16; TEMP 36.6; O2SAT 99
== END 2023-08-14 16:08 | disposition home or self-care (01) ==
PROVIDERS: Emergency Provider Emergency Medicine; PCP Family Medicine
DX: R11.2 Nausea with vomiting, unspecified (principal); E66.9 Obesity, unspecified; Z68.37 Body mass index [BMI] 37.0-37.9, adult; K21.9 Gastro-esophageal reflux disease without esophagitis; Z86.010 Personal history of colon polyps; Z87.891 Personal history of nicotine dependence; K76.0 Fatty (change of) liver, not elsewhere classified; K40.90 Unilateral inguinal hernia, without obstruction or gangrene, not specified as recurrent
CPT/HCPCS: 36415; 74177; 80053; 81001; 83690; 85025; 96361; 96374; 96375; 96376; 99284; C9113; J1170; J2405; J2550; J7030; Q9967